=== PATIENT | male | born 2000 | race Caucasian/White ===

== ENCOUNTER 2025-04-29 01:57 | Emergency (ER) | payer OTHER, SELFPAY ==
[2025-04-29 01:57] VITALS: BP 91/42; PULSE 93; RESP 20; TEMP 36.3; O2SAT 100
[2025-04-29 04:22] LABS: Hematocrit 53.6 % (42.0-52.0); Hemoglobin 18.7 g/dL (14.0-18.0); Immature Granulocyte Percent A 0.8 % (0-0.5); Lymphocytes Absolute Auto 3.35 K/mm3 (0.9-3.2); Mean Corpuscular HGB Conc 34.9 g/dl (32-36); Mean Corpuscular Hemoglobin 30.8 pg (26-34); Mean Corpuscular Volume 88.2 fl (80-100); Nucleated Red Blood Cells Absolute Auto 0.000 K/mm3 (0.0-0.012); Nucleated Red Blood Cells Perc 0.0 % (0.0-0.2); Platelet Count Result 397 k/mm3 (150-375); Red Blood Count 6.08 M/mm3 (4.6-6.20); White Blood Count 15.5 K/mm3 (4.5-10.0)
[2025-04-29 04:23] LABS: Alanine Aminotransferase 35 U/L (6-50); Albumin Level 4.1 g/dL (3.5-5.1); Alkaline Phosphatase 68 U/L (38-126); Anion Gap 7 mmol/L (4-12); Aspartate Amino Transferase 29 U/L (17-59); Bilirubin,Total 0.3 mg/dL (0.2-1.3); Blood Urea Nitrogen 27 mg/dL (9-20); Calcium 8.4 mg/dL (8.4-10.2); Carbon Dioxide 29 mmol/L (22-30); Chloride 100 mmol/L (98-107); Estimated Glomerular Filt Rate > 60; Glucose 179 mg/dL (65-110); Potassium 3.8 mmol/L (3.4-5.0); Sodium 136 mmol/L (137-145); Total Protein 6.6 g/dL (6.3-8.2)
--- NOTE | 2025-04-29 04:24 | ED.HEATRA ---
HPI - Head Injury General Chief complaint: Allergic Reaction Stated complaint: Alergic Reaction History of Present Illness HPI Narrative: Patient seen and examined during EMR down time. Please refer to physical paper charting during down time for complete dictation of patient's care encounter and disposition. Related Data Allergies Allergy/AdvReac Type Severity Reaction Status Date / Time melodie partha tide AdvReac Severe Hives Uncoded 04/29/25 05:19 Review of Systems Review of Systems: As reviewed in the physical paper charting from down time Exam Narrative: GENERAL: [Well-appearing, well-nourished, and in no acute distress.] HEAD: [Normocephalic, atraumatic.] EYES: [PERRLA and EOMI.] ENT: Nares clear, no rhinorrhea or epistaxis. Mucous membranes moist. NECK: Supple. CHEST: [Clear to auscultation. No respiratory distress.] HEART: [Regular rate and rhythm]. No murmur heard. [Normal peripheral pulses.] ABDOMEN: [Soft, nondistended], [nontender], [No rigidity or guarding] EXTREMITIES: Normal range of motion. [No edema.] SKIN: Diffuse urticarial rash over arms and legs face trunk and back NEURO: [No focal deficits]. Alert and oriented [x3.] PSYCH: [Normal mood and affect.] Course Vital Signs Vital signs: Vital Signs Temperature 36.3 C L 04/29/25 01:57 Pulse Rate 93 04/29/25 01:57 Respiratory Rate 20 04/29/25 01:57 Blood Pressure 91/42 L 04/29/25 01:57 Pulse Oximetry 100 04/29/25 01:57 Oxygen Delivery Room Air 04/29/25 01:57 Temperature 36.3 C L 04/29/25 01:57 Pulse Rate 79 04/29/25 04:54 Respiratory Rate 14 04/29/25 04:54 Blood Pressure 122/73 04/29/25 04:54 Pulse Oximetry 99 04/29/25 04:54 Oxygen Delivery Room Air 04/29/25 01:57 MDM - Head Injury MDM Narrative Medical decision making narrative: Patient seen and examined during EMR down time. Please refer to physical paper charting during down time for complete dictation of patient's care encounter and disposition. Lab Data 04/29/25 02:50 04/29/25 02:50 Labs: Lab Results 04/29/25 Range/Units 02:50 WBC 15.5 H (4.5-10.0) K/mm3 RBC 6.08 (4.6-6.20) M/mm3 Hgb 18.7 H (14.0-18.0) g/dL Hct 53.6 H (42.0-52.0) % MCV 88.2 (80-100) fl MCH 30.8 (26-34) pg MCHC 34.9 (32-36) g/dl RDW 11.9 (11.5-14.5) % Plt Count 397 H (150-375) k/mm3 MPV 9.0 (7.4-10.4) fl Immature Gran % (Auto) 0.8 H (0-0.5) % Neut % (Auto) 68.8 (45.5-73.1) % Lymph % (Auto) 21.6 (18.3-44.2) % [place] % (Auto) 7.4 (2.6-8.5) % Eos % (Auto) 1.0 (0-4.4) % Baso % (Auto) 0.4 (0.2-1.2) % Lymph # (Auto) 3.35 H (0.9-3.2) K/mm3 [place] # (Auto) 1.2 H (0.1-0.6) K/mm3 Eos # (Auto) 0.2 (0-0.3) K/mm3 Baso # (Auto) 0.1 (0.0-0.1) K/mm3 Abs Immat Gran (auto) 0.12 H (0.00-0.031) K/mm3 Absolute Neuts (auto) 10.7 H (1.3-6.7) K/mm3 Absolute Nucleated RBC 0.000 (0.0-0.012) K/mm3 Nucleated RBC % 0.0 (0.0-0.2) % Sodium 136 L (137-145) mmol/L Potassium 3.8 (3.4-5.0) mmol/L Chloride 100 (98-107) mmol/L Carbon Dioxide 29 (22-30) mmol/L Anion Gap 7 (4-12) mmol/L BUN 27 H (9-20) mg/dL Creatinine 1.37 H (0.7-1.3) mg/dL Estim Creat Clear Calc Not Reportable Estimated GFR > 60 (59 - ) Glucose 179 H (65-110) mg/dL Calcium 8.4 (8.4-10.2) mg/dL Total Bilirubin 0.3 (0.2-1.3) mg/dL AST 29 (17-59) U/L ALT 35 (6-50) U/L Alkaline Phosphatase 68 (38-126) U/L Total Protein 6.6 (6.3-8.2) g/dL Albumin 4.1 (3.5-5.1) g/dL Discharge Plan Discharge Clinical Impression: Anaphylaxis, Acute dehydration Patient Disposition: Home Condition: Stable Instructions: Antibiotic Form, Anaphylaxis (ED) Additional Instructions: Refrain from using medications that triggered your allergic reaction/anaphylaxis today. Take the medications as prescribed for the next few days to continue your symptom relief. We have prescribed epinephrine auto injectors in case you have a severe allergic reaction in the future. Take the steroids/pepcid/benedryl for symptom control. Follow-up with regular doctor. Return with any emergencies. Patient Language: Kinyarwanda Prescriptions: New famotidine [Pepcid] 20 mg tablet 20 mg PO BID Qty: 20 0RF prednisone 50 mg tablet 50 mg PO DAILY 5 Days Qty: 5 0RF epinephrine [EpiPen 2-Apollo] 0.3 mg/0.3 mL auto-injector 0.3 mg IM ONCE Qty: 2 0RF Rx Instructions: as a single dose; may repeat once famotidine [Pepcid] 20 mg tablet 20 mg PO BID Qty: 20 0RF prednisone 50 mg tablet 50 mg PO DAILY 5 Days Qty: 5 0RF epinephrine [EpiPen 2-Apollo] 0.3 mg/0.3 mL auto-injector 0.3 mg IM ONCE Qty: 2 0RF Rx Instructions: as a single dose; may repeat once ondansetron 4 mg tablet,disintegrating 4 mg PO Q8H PRN (Reason: nausea and vomiting) Qty: 10 0RF diphenhydramine HCl 25 mg capsule 25 mg PO TID PRN (Reason: allergy symptoms) Qty: 30 0RF Follow-up/Referrals: UNKNOWN,DOCTOR [Primary Care Provider] Time of Disposition: 06:11
--- NOTE | 2025-04-29 04:32 | ECG_ITS ---
Test Date: 2025-04-29 04:41:15 Measurements Intervals [place] Rate: 79 P: 47 RI: 138 QRS: 58 QRSD: 88 T: 50 QT: 371 QTc: 428 Interpretive Statements SINUS RHYTHM WITH SINUS ARRHYTHMIA NORMAL ECG No previous ECG available for comparison Electronically Signed On 04-29-2025 06:32:57 CDT by Caesar Martinez D.O.
[2025-04-29 04:54] VITALS: BP 122/73; PULSE 79; RESP 14; O2SAT 99
== END 2025-04-29 06:20 | disposition home or self-care (01) ==
PROVIDERS: Emergency Provider Student in an Organized Health Care Education/Training Program
DX: T88.6XXA Anaphylactic reaction due to adverse effect of correct drug or medicament properly administered, initial encounter (principal); R55 Syncope and collapse; E86.0 Dehydration; T50.995A Adverse effect of other drugs, medicaments and biological substances, initial encounter
CPT/HCPCS: 36415; 80053; 85025; 93005; 99283